=== PATIENT | female | born 1955 | race Caucasian/White ===

== ENCOUNTER 2020-01-05 19:49 | Emergency (ER) | payer OTHER, SELFPAY ==
[2020-01-05 19:50] VITALS: BP 108/68; PULSE 90; RESP 16; TEMP 37.3; O2SAT 98; BMI 25.7
--- NOTE | 2020-01-05 20:28 | ED.VIS.GEN ---
History of Present Illness Chief Complaint: Cellulitis Informant: Patient Onset: Yesterday Narrative: Patient presents the emergency department with a chief complaint of cellulitis of the right leg. Patient states that last night she developed a fever and she has been treating it with Advil. She did not know where the fever is coming from until this afternoon when she went to take a bath and noticed the redness on the right leg. In 2014 she had cellulitis of the right leg that was successfully treated outpatient veliz with Keflex. She states that this is in the same spot. She notes it is traveled slightly up onto her thigh. She denies any breaks in the skin. She states that she typically has had more problems with her right leg than the left in terms of varicose veins and some mild swelling. She typically wears compression stockings. She is on Coumadin a PFO with TIA. Past Medical History - Allergies and Home Meds Allergies/Adverse Reactions: Allergies No Known Allergies Allergy (Verified 01/05/20 19:53) Primary Care Physician: Arsenio Lynch III, MD [Primary Care Provider] - Smoking Status: Never smoker Review of Systems General: Reports: Fever. Denies: Chills, Sweats Eyes: Denies: Visual changes - bilaterally, Diplopia ENT: Denies: Rhinorrhea, Sore throat Cardiovascular: Denies: Chest pain, Palpitations Respiratory: Denies: Dyspnea, Cough, Dyspnea on exertion Gastrointestinal: Denies: Abdominal pain, Nausea, Vomiting, Diarrhea, Melena, Hematochezia Genitourinary: Denies: Dysuria, Hematuria, Frequency Musculoskeletal: Reports: Swelling. Denies: Back pain Skin: Reports: Rash. Denies: Wounds Neurological: Denies: Headache, Weakness, Numbness Physical Exam Vital Signs/Narrative: Vital Signs Temp Pulse Resp BP Pulse Ox 01/05/20 19:50 99.1 F 90 16 108/68 98 Inital Vital Signs reviewed: Yes General: Well nourished, Well developed, No Acute Distress Head: Normocephalic, Atraumatic Eyes: Perrl, EOMI ENT: Moist mucous membranes, No rhinorrhea Neck: Supple, Nontender Cardiovascular: Regular rate, Regular rhythm, No murmurs Respiratory: No distress, CTA bilaterally, Chest nontender Abdomen: Soft, Nontender, Nondistended, Normal bowel sounds Back: Nontender, Normal Inspection Extremities: Nontender, No edema Skin: Normal color, Rash - There is erythema circumferentially around the middle third of the distal right leg. It extends medially up onto the distal fourth of the thigh. Above which there is no lymphangitic streaking. No significant swelling from side to side. Neurological: Alert, Oriented x3, Cranial nerves II-XII grossly intact, Normal Strength, Normal Sensation Psychological: Normal affect, Normal Mood Diagnostic/Tx/Re-eval - Medical Decision Making White count is 18,000. Lactic acid is normal. Blood cultures were obtained and she received Keflex. Patient would really like to try Keflex as an outpatient. She more than adequately qualifies for admission but I understand her reasoning of not want to be admitted with the current pandemic. Patient will be sent home on Keflex which is worked for her in the past. Return if worsening or concerns. ED Disposition - Plan for ED Patient: Disposition: Home or Assisted Living Instructions: Cellulitis Prescriptions: Cephalexin [Keflex] 500 mg PO Q6 #40 cap Prescription Printed Referrals: Arsenio Lynch III, MD [Primary Care Provider] - 3-5 Days (for recheck) Additional Instructions: As discussed, you more than qualify for admission. If you are worsening please come back to the emergency department so we can admit you for IV antibiotics. However I understand why you would not want to be hospitalized and I think it is very reasonable to try oral antibiotics to help limit your risk of hospitalization.
[2020-01-05 20:53] LABS: Absolute Lymphocyte Count 1.17 X10^3/uL (0.83-4.51); Absolute Neutrophil Count 16.2 X10^3/uL (2.0-7.7); Basophil# 0.03 X10^3/uL; Basophil% 0.2 % (0-1); Eosinophil# 0.07 X10^3/uL; Eosinophils% 0.4 % (0-5); Hematocrit 37.7 % (37-47); Hemoglobin 12.6 g/dL (12.0-15.0); Lymphocyte # 1.17 X10^3/ul (4.0); Lymphocyte % 6.4 % (19-41); Mean Corp Hgb Conc 33.4 g/dL (32-36); Mean Corpuscular Hgb 28.6 pg (27.0-32.0); Mean Corpuscular Volume 85.5 fL (81-99); Mean Platelet Vol. 10.7 fl (6.2-12.0); Monocyte# 0.81 X10^3/uL; Monocyte% 4.4 % (0-10); NRBC Flagged by Analyzer 0 % (0-5); Neutrophil # 16.21 X10^3/uL (2.7-7.7); Neutrophil % 87.9 % (47-70); Platelet Count 193 K/mm3 (150-450); RBC Distribution Width CV 12.8 % (11.6-14.6); RBC Distribution Width SD 39.1 fl (35.1-43.9); Red Blood Count 4.41 M/mm3 (4.2-5.4); White Blood Count 18.4 K/mm3 (4.4-11.0)
[2020-01-05 21:03] LABS: Prothrombin Time (Protime)PT. 30.8 SECONDS (11.7-14.9)
[2020-01-05 21:08] LABS: ALB/GLOB Ratio 0.9 RATIO (0.9-2.4); AST(SGOT) 19 U/L (15-37); Alanine Aminotransfer ALT/SGPT 34 U/L (13-56); Albumin, Serum 3.2 g/dL (3.2-5.0); Alkaline Phosphatase 55 U/L (45-117); Anion Gap 8 (5-15); BUN 23 mg/dL (7-18); BUN/Creat Ratio 20.4 RATIO (10-20); Calcium,Total 9.8 mg/dL (8.5-10.1); Chloride 104 mmol/L (98-107); Creatinine, Serum 1.13 mg/dL (0.55-1.02); EST Glomerular Filtration Rate 52 mL/min (>60); Est Glom Filt Rate - Afr Amer 63 mL/min (>60); Estimated Creatinine Clearance 53.95 ml/min; Globulin 3.4 g/dL (2.2-4.2); Glucose 126 mg/dL (74-106); Potassium 3.3 mmol/L (3.5-5.1); Protein, Total 6.6 g/dL (6.4-8.2); Sodium Level 139 mmol/L (136-145)
[2020-01-05 21:20] LABS: Lactic Acid 1.2 mmol/L (0.4-1.9)
[2020-01-05] MEDS: Cephalexin 250 MG Capsule 500 MG PO (21:42)
[2020-01-05 22:26] VITALS: TEMP 37.2
== END 2020-01-05 22:27 | disposition home or self-care (01) ==
PROVIDERS: Emergency Provider Emergency Medicine; PCP Family Medicine
DX: L03.115 Cellulitis of right lower limb (principal); Q21.1 Atrial septal defect; Z79.01 Long term (current) use of anticoagulants; Z79.899 Other long term (current) drug therapy
CPT/HCPCS: 80053; 83605; 85025; 85610; 87040; 99284; A4216

== ENCOUNTER 2024-10-18 07:53 | Day surgery (SDC) | payer SELFPAY, OTHER ==
[2024-10-18 08:05] LABS: INR Fingerstick 1.3; Prothrombin Time Fingerstick 15.1 SEC (11.7-14.9)
--- NOTE | 2024-10-18 08:06 | HP.PCM_ITS ---
HPI - General General Date of Admission: 10/18/24 Date of Service: 10/18/24 Chief Complaint: abdominal pain, bloating and change in bowel habits HPI Narrative DONAL MARTIN, is a 68 F who [id number] female presents for endoscopic evaluation of intermittent RUQ pain, ribbon like stools, gas pain, bloating and intermittent nausea. CBC and CMP were unremarkable 07/25/2024. INR 2.2 on coumadin. 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 - pills - oropharyngeal - never had evaluated previously - never seen ST - over the past year her bowel habits have changed - stools can be narrow and ribbon like - can have a BM QD-Q2D - occasional diarrhea - denies any bleeding - Sister with colon CA mid 50's - H/O TIA 2004 - takes Coumadin - denies any CP or SOB - denies any kidney disease COUNT INCLUDES [facility] Medical History Wears glasses Wears dentures Post-menopausal History of DVT of lower extremity Gastric reflux Non-smoker History of edema History of toxemia of PFO (patent foramen ovale) HTN (hypertension) Varicose veins of both legs with edema TIA (transient ischemic attack) Home Medications ?Medication ?Instructions ?Recorded ?Last Taken ?Type Artic Sea 3 cap PO DAILY 08/14/24 Unkn own History ascorbic acid (vitamin C) 1,000 mg 1 g PO QDAY 4 Unknown History capsule cranberry extract 500 mg capsule 500 mg PO DAILY 08/14 Unknown History (Cranberry Concentrate) hydrochlorothiazide 12.5 mg tablet 12.5 mg PO QDAY 11/06 Unknown History losartan 25 mg tablet 25 mg PO QDAY 08/14/24 Unkno wn History red yeast rice 600 mg capsule 1,200 mg PO QDAY 4 Unknown History thyro t 1 tab PO DAILY 08/14/24 Unkn own History warfarin 5 mg tablet 5 mg PO .QMTHSA 08/14/24 Unk nown History warfarin 6 mg tablet 6 mg PO .QSUTWF 08/14/24 Unk nown History pantoprazole 40 mg tablet,delayed 40 mg PO QDAY #30 ta bs 10/16/24 Unknown Rx release Allergy/AdvReac Type Severity Reaction Status Date / Time No Known Allergies Allergy Verified 10/16/24 13:15 Family History Sister Colon cancer Surgical History History of tooth extraction Hx of cholecystectomy Hx of tubal ligation H/O vein stripping H/O: section Social History Smoking Status: Never smoker ROS Constitutional Constitutional: Denies fatigue, fever(s), poor appetite, weight gain or weight loss Gastrointestinal Gastrointestinal: Denies belching, bloating, change in bowel habits, change in stool character, chewing difficulty, coffee ground emesis, constipation, cramping, diarrhea, dyspepsia, dysphagia, early satiety, excessive flatus, fecal incontinence, heartburn, hematemesis, hematochezia, hemorrhoids, loose stools, melena, nausea, odynophagia, rectal bleeding, tenesmus, vomiting or weight changes Physical Exam Const alert, oriented x3, no apparent distress and healthy appearing General Appearance: cooperative GI normal to inspection, nondistended, normoactive bowel sounds, soft to palpation, non-tender and non-distended Percussion: normal to percussion Rectal Exam: deferred Results Lab / Micro Data Labs: Laboratory Results - last 24 hr 10/18/24 08:02: POC PT 15.1 H, INR 1.3 Assessment & Plan Assessment/Plan (1) Family history of colon cancer: (2) Dysphagia: QUALIFIERS: Dysphagia type: oropharyngeal phase Qualified Code(s): R13.12 - Dysphagia, oropharyngeal phase (3) Change in bowel habits: (4) Nausea: (5) RUQ pain: PLAN: Assessment and Plan Assessment and Plan (1) RUQ pain: Status: Acute (2) Nausea: Status: Acute (3) Change in bowel habits: Status: Acute (4) Dysphagia: Status: Acute Qualifiers: Dysphagia type: oropharyngeal phase Qualified Code(s): R13.12 - Dysphagia, oropharyngeal phase (5) Family history of colon cancer: Status: Acute Medications: Discontinued cephalexin Discontinued Reason: Pt no longer taking 500 mg PO Q6 40 caps 0RF Plan 68y/o female presents for initial consultation with complaints of intermittent RUQ pain, ribbon like stools, gas pain, bloating and intermittent nausea. CBC and CMP were unremarkable 07/25/2024. INR 2.2 on coumadin. She reports bowel habits changed a year ago without any new medications or dietary changes. She denies any bleeding. Family history is significant for sister with colon cancer in her mid 50's. RUQ pain x2 months with intermittent nausea and frequent HB. She denies any emesis, but reports a weight loss of a few pounds. She also complains of dysphagia with pills since TIA in 2004. She denies any prior MBS or ST. I have ordered MBS and scheduled her for bidirectional endoscopies. She will start PPI daily and follow-up in the office post scopes. Colon & EGD Obtain clearance to hold Coumadin MBS Start PPI daily - with plan to taper off after 8-12 weeks pending symptoms and EGD findings Plan Details Follow Up: 8 Weeks
--- NOTE | 2024-10-18 08:20 | PCM.PRE.AN2 ---
ASA Classification* ASA Classification ASA Classification: 2 Assessment & Plan Anesthesia* Anesthesia Assessment Anesthesia Assessment: Discussed sedation and/or anesthesia options, risks, benefits, and alternatives with patient/parents/legal guardian/POA. Questions invited. The patient/parents/legal guardian/POA seems to understand and agrees to proceed with anesthesia plan. Reviewed the physical assessment, medical history, allergy history and patient home medications list prior to surgery/procedure/anesthetic and documented any changes. Performed airway and anesthesia risk assessments. Anesthesia Type Anesthesia Type: MAC Anesthesia Focused Assessment* Airway Assessment Mouth opens: >3 cm Mallampati Score: II Focused Labs Anesthesia Preop lab: CBC WBC 18.4 K/mm3 (4.4-11.0) H 01/05/20 20:01/05/20 RBC 4.41 M/mm3 (4.2-5.4) 01/05/20 20:39 01/05/20 Hgb 12.6 g/dL (12.0-15.0) 01/05/20 20:01/05/20 Hct 37.7 % (37-47) 01/05/20 20:39 01/05/20 Plt Count 193 K/mm3 (150-450) 01/05/20 20:39 01/05/20 CHEMISTRY Potassium 3.3 mmol/L (3.5-5.1) L 01/05/20 20:39 01/05/20 Sodium 139 mmol/L (136-145) 01/05/20 20:39 01/05/20 BUN 23 mg/dL (7-18) H 01/05/20 20:01/05/20 Creatinine 1.13 mg/dL (0.55-1.02) H 01/05/20 20:39 01/05/20 Glucose 126 mg/dL (74-106) H 01/05/20 20:39 01/05/20 COAG PT 30.8 SECONDS (11.7-14.9) H 01/05/20 20:39 01/05/20 Pre-Assessment Diagnosis/Proposed Procedure Planned Operative Procedure(s): EGD, COLONOSCOPY Anesthesia History 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 When Was Last Pacemaker Check QUESTION #4 FULL TEXT: You/Your Family Experience fever (hyperthermia) with Anesthesia Last Oral Intake Last Oral intake: Last Oral Intake NPO since Meds taken in AM with sips of water? Meds patient instructed to take am of surgery PONV PONV - sprinkler fitter apprentice: PONV - sprinkler fitter apprentice Female Yes 10/16/24 13:25 HX of Motion Sickness No 10/16/24 13:25 HX of N/V After Surgery No 10/16/24 13:25 Non-Smoker Yes 10/16/24 13:25 Duration of Surgery greater No 10/16/24 13:25 than 60 minutes Number of Risk Factors 2 10/16/24 13:25 PONV Score Moderate Risk 10/16/24 13:25 Respiratory Assessment Respiratory Assessment - sprinkler fitter apprentice: Respiratory Tract Infection Hx - sprinkler fitter apprentice Hx Respiratory Tract Infection No 10/16/24 13:25 STOP Sleep Apnea STOP Sleep Apnea - sprinkler fitter apprentice: STOP Sleep Apnea - sprinkler fitter apprentice Hx Hypertension Yes: CONTROLLED ON MEDS 10/16/24 13:25 Hx Sleep Apnea No 10/16/24 13:25 CPAP BIPAP Do you snore loudly (louder No 10/16/24 13:25 than talking or can be heard Do you often feel tired/ No 10/16/24 13:25 fatigued/ sleepy during daytime? Has anyone observed you stop No 10/16/24 13:25 breathing during sleep? STOP Results Negative 10/16/24 13:25 QUESTION #5 FULL TEXT : Do you snore loudly (louder than talking or can be heard through closed doors)? Tobacco Use History Tobacco Use History - sprinkler fitter apprentice: Tobacco Use History - sprinkler fitter apprentice Tobacco Use Smoking Status Never smoker 10/16/24 13:25 Hx Tobacco Use No 10/16/24 13:25 Years Smoking Packs Smoked per Day Smoking Cessation Date was within the last 15 years Hx Smoking Cessation Date Hx Smoking Cessation Counseling Hematologic Medial History Hematologic Hx - sprinkler fitter apprentice: Hematologic Medical Hx - account auditor Hx of Blood Transfusion No 10/16/24 13:25 Hx of Transfusion in last 3 No 10/16/24 13:25 Months Date of Last Transfusion (if within last 3 months) Ever experience any problems No 10/16/24 13:25 with transfusion(s)? Specify any problems Hx of Preganancy in last 3 No 10/16/24 13:25 Months Nurse Filling Out Transfusion MGRIFFITH 10/16/24 13:25 & Questions: Date: 10/16/24 10/16/24 13:25 Time: 13:27 10/16/24 13:25 Patient unable to answer at this time (ie. confused, unrespo /Reproduction History /Reproductive History - sprinkler fitter apprentice: /Reproductive Hx- sprinkler fitter apprentice Hx Now No 10/16/24 13:25 Gestational Age (in weeks): EDC: Hx Hx Para Hx Section SAB No 10/16/24 13:25 PFSH Medical History Wears glasses Wears dentures Post-menopausal History of DVT of lower extremity Gastric reflux Non-smoker History of edema History of toxemia of PFO (patent foramen ovale) HTN (hypertension) Varicose veins of both legs with edema TIA (transient ischemic attack) Home Medications ?Medication ?Instructions ?Recorded ?Last Taken ?Type Artic Sea 3 cap PO DAILY 08/14/24 Unknown History ascorbic acid (vitamin C) 1,000 mg 1 g PO QDAY 08/14/24 Unknown History capsule cranberry extract 500 mg capsule 500 mg PO DAILY 08/14/24 Unknown History (Cranberry Concentrate) hydrochlorothiazide 12.5 mg tablet 12.5 mg PO QDAY 08/14/24 Unknown History losartan 25 mg tablet 25 mg PO QDAY 08/14/24 Unknown History red yeast rice 600 mg capsule 1,200 mg PO QDAY 08/14/24 Unknown History thyro t 1 tab PO DAILY 08/14/24 Unknown History warfarin 5 mg tablet 5 mg PO .QMTHSA 08/14/24 Unknown History warfarin 6 mg tablet 6 mg PO .QSUTWF 08/14/24 Unknown History pantoprazole 40 mg tablet,delayed 40 mg PO QDAY #30 tabs 10/16/24 Unknown Rx release Allergy/AdvReac Type Severity Reaction Status Date / Time No Known Allergies Allergy Verified 10/16/24 13:15 Family History Sister Colon cancer Surgical History History of tooth extraction Hx of cholecystectomy Hx of tubal ligation H/O vein stripping H/O: section Social History Smoking Status: Never smoker Review of Systems (Anesthesia) ROS Narrative System reviewed and no additional complaints, except as documented.
[2024-10-18 08:26] VITALS: BP 144/78; PULSE 95; RESP 16; TEMP 37; O2SAT 99; BMI 25.4
--- NOTE | 2024-10-18 09:00 | COLBX_PTH ---
PATIENT: DONAL MARTIN LOC: EN U#:[id number] AGE/SX: 68/F ROOM: RE10/18/[address]: Dr. Calvin Haider DO : 1955 BED: DIS: 10/18/2024 SPEC #: [id number] RECD: 10/18/24 12:30 STATUS: DONNY JACQUIE #: [id number] JOAN: 10/18/24 09:[address]: Calvin Haider DEPT: SURGICAL PATHOLOGY RECD BY: Omar Owen ENTERED: 10/18/24 13:25 SP TYPE: COLON BX OTHR DR: Sarah Cantu, WEB SYSTEMS DEVELOPER-C Tissues: A - Duodenum, NOS B - Gastric mucous membrane C - Esophagus, NOS D - Rectum, NOS E - Ileum, NOS F - COLON BIOPSY Procedures: Special Stain Group I Surgery Specimen Level IV Alcian Blue/PAS (control) HEADER OPERATION: Colonoscopy with biopsy, EGD with biopsy PRE-OP DIAGNOSIS: Family history of colon cancer, dysphagia, change in bowel habits, nausea, right upper quadrant pain TISSUE SUBMITTED: A- Duodenum biopsy, B- Gastric body biopsy, C- Distal esophagus biopsy,D- Rectal polyp biopsy, E- Terminal ileum biopsy, F- Random biopsy MICROSCOPIC DIAGNOSIS A. Duodenum, biopsy: Fragments of duodenal mucosa with mild congestion and hemorrhage. B. Gastric body, biopsy: Moderate chronic active gastritis. See comment. C. Distal esophagus, biopsy: Fragments of gastric mucosa with moderate chronic inflammation and mild acute inflammation. Intestinal metaplasia (goblet cell metaplasia) not identified. See comment. D. Rectal polyp, biopsy: Fragments of tubular adenoma. E. Terminal ileum, biopsy: Fragments of small intestinal mucosa, no pathologic diagnosis. See comment. F. Colon, random biopsy: Fragments of colonic mucosa, no pathologic diagnosis. 10/19/2024 COMMENT B. The results of immunohistochemistry for Helicobacter pylori will be reported separately ([id number]). C. Alcian blue/PAS stain with matched control is used in the evaluation of the specimen. E. Prominent lymphoid aggregates are noted. MICROSCOPIC DESCRIPTION Slides are reviewed. GROSS DESCRIPTION A. Received in fixative is one container labeled with the patient's name and designated Duodenum biopsy. The specimen consists of two irregular fragments of light deng soft tissue that in aggregate measure 0.7 x 0.3 x 0.2 cm. The specimen is totally submitted in one cassette. B. Received in fixative is one container labeled with the patient's name and designated Gastric body biopsy. The specimen consists of one irregular fragment of light deng soft tissue that measures 0.5 x 0.3 x 0.2 cm. The specimen is totally submitted in one cassette. C. Received in fixative is one container labeled with the patient's name and designated Distal esophagus biopsy. The specimen consists of two irregular fragments of light deng soft tissue that in aggregate measure 1 x 0.3 x 0.2 cm. The specimen is totally submitted in one cassette. D. Received in fixative is one container labeled with the patient's name and designated Rectal polyp biopsy. The specimen consists of multiple irregular fragments of light deng soft tissue that in aggregate measure 0.8 x 0.2 x 0.2 cm. The specimen is totally submitted in one cassette. E. Received in fixative is one container labeled with the patient's name and designated Terminal ileum biopsy. The specimen consists of two irregular fragments of light deng soft tissue that in aggregate measure 0.8 x 0.2 x 0.1 cm. The specimen is totally submitted in one cassette. F. Received in fixative is one container labeled with the patient's name and designated Random biopsy. The specimen consists of multiple irregular fragments of light deng soft tissue that in aggregate measure 2.1 x 0.2 x 0.2 cm. The specimen is totally submitted in one cassette. FOREIGN 10/18/2024 TC:2 CPT:43043o9,57617
--- NOTE | 2024-10-18 09:00 | IMM_PTH ---
PATIENT: DONAL MARTIN LOC: EN U#:[id number] AGE/SX: 68/F ROOM: RE10/18/[address]: Dr. Calvin Haider DO : 1955 BED: DIS: 10/18/2024 SPEC #: [id number] RECD: 10/18/24 14:38 STATUS: DONNY REKell #: [id number] JOAN: 10/18/24 09:[address]: Calvin Haider DEPT: IMMUNOHISTOCHEMISTRY RECD BY: Mason Farah ENTERED: 10/18/24 14:38 SP TYPE: IMMUNO OTHR DR: Sarah Cantu, ONLINE CONTENT COORDINATOR-C Tissues: B - Gastric mucous membrane Procedures: H Pylori (initial) PHYSICIAN & INSTITUTION [place] [id number] SPECIMEN INFORMATION: Tissue Source: B- Gastric body biopsy Clinical Info: Family history of colon cancer, dysphagia, change in bowel habits, nausea, right upper quadrant pain Specimen Number: [id number] CPT code: 86331 METHODOLOGY: Deparaffinized sections of prefer/formalin-fixed tissue or PAP/DQ stained slides are incubated with monoclonal/polyclonal antibodies/oligonucleotide probes. Localization is made via biotin free immunoperoxidase method. Appropriate controls are performed and reacted as expected. Results on target cell population are indicated in the following table: RESULTS: ANTIBODY / CLONE RESULT Block B H Pylori (polyclonal) positive These tests were developed and their performance characteristics determined by [facility]. They may not have been cleared or approved by the U.S. Food and Drug Administration. The FDA has determined that such clearance or approval is not necessary. The above immunohistochemical/dualISH markers are ordered and reviewed by the Pathologist. INTERPRETATION: B. Gastric body, biopsy: Positive for numerous Helicobacter pylori organisms. 10/19/2024
--- NOTE | 2024-10-18 09:19 | OP.CCLET_ITS ---
10/18/2024 Sarah Cantu Cd Technician, Cd Technician-c Re : Upper GI endoscopy procedure for Cher Pham Dear Pepe This procedure was performed on Friday, October 18, 2024. My impressions and recommendations are as follows: Impressions : - LA Grade A reflux esophagitis with no bleeding. Biopsied. - Small hiatal hernia. - Chronic gastritis. Secondary to severe bile acid reflux into the stomach and into the esophagus. Biopsied. - Erythematous duodenopathy. Recommendations : - Discharge patient to home. - Resume previous diet. - Continue present medications. - Await pathology results. - Consider gastric emptying study My findings are described in the full procedure note, which is enclosed. If I can be of further assistance, please feel free to contact me at . Sincerely, Calvin Haider, 10/18/2024 9:18:20 AM This report has been signed electronically.
--- NOTE | 2024-10-18 09:19 | OP.EGD_ITS ---
Patient Name: Cher Pham Procedure Date: 10/18/2024 8:44 AM Date of : 1955 Age: 68 Procedure: Upper GI endoscopy Indications: Epigastric abdominal pain, Suspected esophageal reflux Providers: Calvin Haider DO Referring MD: Sarah Cantu Business Process Representative, Business Process Representative-c Medicines: Monitored Anesthesia Care Patient Profile: This is a 68 year old female. Refer to note in patient chart for documentation of history and physical. Patient has symptoms of chronic epigastric abdominal pain, chronic dyspepsia and chronic nausea. Complications: No immediate complications. Procedure: Pre-Anesthesia Assessment: - Prior to the procedure, a History and Physical was performed, and patient medications and allergies were reviewed. The patient is competent. The risks and benefits of the procedure and the sedation options and risks were discussed with the patient. All questions were answered and informed consent was obtained. Patient identification and proposed procedure were verified by the physician in the pre-procedure area. Mental Status Examination: alert and oriented. Airway Examination: normal oropharyngeal airway and neck mobility. Respiratory Examination: clear to auscultation. CV Examination: normal. Prophylactic Antibiotics: The patient does not require prophylactic antibiotics. Prior Anticoagulants: The patient has taken no anticoagulant or antiplatelet agents. ASA Grade Assessment: II - A patient with mild systemic disease. After reviewing the risks and benefits, the patient was deemed in satisfactory condition to undergo the procedure. The anesthesia plan was to use monitored anesthesia care (MAC). Immediately prior to administration of medications, the patient was re-assessed for adequacy to receive sedatives. The heart rate, respiratory rate, oxygen saturations, blood pressure, adequacy of pulmonary ventilation, and response to care were monitored throughout the procedure. The physical status of the patient was re-assessed after the procedure. After obtaining informed consent, the endoscope was passed under direct vision. Throughout the procedure, the patient's blood pressure, pulse, and oxygen saturations were monitored continuously. The pediatric colonoscope was introduced through the mouth, and advanced to the second part of duodenum. The upper GI endoscopy was accomplished without difficulty. The patient tolerated the procedure well. Scope In: 8:54:15 AM Scope Out: 8:58:46 AM Total Procedure Duration Time 0 hours 4 minutes 31 seconds Findings: LA Grade A (one or more mucosal breaks less than 5 mm, not extending between tops of 2 mucosal folds) esophagitis with no bleeding was found 38 to 40 cm from the incisors. Biopsies were taken with a cold forceps for histology. Verification of patient identification for the specimen was done. Estimated blood loss was minimal. A small hiatal hernia was present. Patchy mild inflammation characterized by erythema was found in the gastric body. Biopsies were taken with a cold forceps for histology. Verification of patient identification for the specimen was done. Biopsies were taken with a cold forceps for Helicobacter pylori testing. Verification of patient identification for the specimen was done. Estimated blood loss was minimal. Localized mildly erythematous mucosa without active bleeding and with no stigmata of bleeding was found in the duodenal bulb and in the first portion of the duodenum. Impression: - LA Grade A reflux esophagitis with no bleeding. Biopsied. - Small hiatal hernia. - Chronic gastritis. Secondary to severe bile acid reflux into the stomach and into the esophagus. Biopsied. - Erythematous duodenopathy. Recommendation: - Discharge patient to home. - Resume previous diet. - Continue present medications. - Await pathology results. - Consider gastric emptying study Procedure Code(s): --- Professional --- 90419, Esophagogastroduodenoscopy, flexible, transoral; with biopsy, single or multiple CPT copyright 2021 [employer]. All rights reserved. The codes documented in this report are preliminary and upon cleaning laborer review may be revised to meet current compliance requirements. Calvin Haider DO 10/18/2024 9:18:20 AM This report has been signed electronically. Number of Addenda: 0 Note Initiated On: 10/18/2024 8:44 AM
[2024-10-18 09:20] VITALS: BP 106/71; BP 144/78; PULSE 77; RESP 16; TEMP 36.3; O2SAT 77
--- NOTE | 2024-10-18 09:24 | PCM.POST.ANE ---
Anesthesia: Postop Eval I Current Vital Signs Temperature: 97.4 F Pulse Rate: 73 Blood Pressure: 106/71 Respiratory Rate: 16 Pulse Ox: 96 Oxygen Delivery Method: Room Air Assessment Airway patent: Yes Spontaneous unlabored respirations: Yes Mental status: Awake and Calm nausea: No Vomiting: No Anesthesia Complication: No Fluid Hydration Crystalloid volume administer (ml): 10 Total IV fluid infused: 10 Progress Note Anesthesia document: Postop Eval 1 completed: Yes
[2024-10-18 09:25] VITALS: BP 106/71; BP 114/73; BP 144/78; PULSE 73; PULSE 75; RESP 16; TEMP 36.3; O2SAT 89; O2SAT 96
[2024-10-18 09:30] VITALS: BP 125/76; BP 144/78; PULSE 70; RESP 14; O2SAT 97
--- NOTE | 2024-10-18 09:31 | OP.CCLET_ITS ---
10/18/2024 Sarah Cantu Rugby League Footballer, Rugby League Footballer-c Re : Colonoscopy procedure for Cher Pham Dear [place] This procedure was performed on Friday, October 18, 2024. My impressions and recommendations are as follows: Impressions : - Diverticulosis in the recto-sigmoid colon and in the sigmoid colon. - One 5 mm polyp in the rectum, removed with a jumbo cold forceps. Resected and retrieved. - Stool in the recto-sigmoid colon, in the sigmoid colon, at the splenic flexure, in the transverse colon and in the cecum. - Congested mucosa in the sigmoid colon, in the descending colon and in the ascending colon. Biopsied. - The examined portion of the ileum was normal. Biopsied. Recommendations : - Discharge patient to home. - Resume previous diet. - Continue present medications. - Await pathology results. - Repeat colonoscopy in 5 years for surveillance. My findings are described in the full procedure note, which is enclosed. If I can be of further assistance, please feel free to contact me at . Sincerely, Calvin Haider, 10/18/2024 9:31:08 AM This report has been signed electronically.
--- NOTE | 2024-10-18 09:31 | OP.COLON_ITS ---
Patient Name: Cher Pham Procedure Date: 10/18/2024 8:58 AM Date of : 1955 Age: 68 Procedure: Colonoscopy Indications: Generalized abdominal pain Providers: Calvin Haider DO Referring MD: Sarah Cantu Director Of Convention Services, Director Of Convention Services-c Medicines: Monitored Anesthesia Care Patient Profile: This is a 68 year old female. Refer to note in patient chart for documentation of history and physical. Patient has symptoms of chronic epigastric abdominal pain, chronic dyspepsia and chronic nausea. Last Colonoscopy: none. The patient's first colonoscopy is today. Complications: No immediate complications. Procedure: Pre-Anesthesia Assessment: - Prior to the procedure, a History and Physical was performed, and patient medications and allergies were reviewed. The patient is competent. The risks and benefits of the procedure and the sedation options and risks were discussed with the patient. All questions were answered and informed consent was obtained. Patient identification and proposed procedure were verified by the physician in the pre-procedure area. Mental Status Examination: alert and oriented. Airway Examination: normal oropharyngeal airway and neck mobility. Respiratory Examination: clear to auscultation. CV Examination: normal. Prophylactic Antibiotics: The patient does not require prophylactic antibiotics. Prior Anticoagulants: The patient has taken no anticoagulant or antiplatelet agents. ASA Grade Assessment: II - A patient with mild systemic disease. After reviewing the risks and benefits, the patient was deemed in satisfactory condition to undergo the procedure. The anesthesia plan was to use monitored anesthesia care (MAC). Immediately prior to administration of medications, the patient was re-assessed for adequacy to receive sedatives. The heart rate, respiratory rate, oxygen saturations, blood pressure, adequacy of pulmonary ventilation, and response to care were monitored throughout the procedure. The physical status of the patient was re-assessed after the procedure. After I obtained informed consent, the scope was passed under direct vision. Throughout the procedure, the patient's blood pressure, pulse, and oxygen saturations were monitored continuously. The pediatric colonoscope was introduced through the anus and advanced to the terminal ileum. The colonoscopy was performed without difficulty. The patient tolerated the procedure well. The quality of the bowel preparation was adequate. The terminal ileum, ileocecal valve, appendiceal orifice, and rectum were photographed. Scope In: 9:00:40 AM Scope Withdrawal Time 0 hours 6 minutes 44 seconds Scope Out: 9:11:51 AM Total Procedure Duration Time 0 hours 11 minutes 11 seconds Findings: The perianal and digital rectal examinations were normal. A few small-mouthed diverticula were found in the recto-sigmoid colon and sigmoid colon. A 5 mm polyp was found in the rectum. The polyp was sessile. The polyp was removed with a jumbo cold forceps. Resection and retrieval were complete. Verification of patient identification for the specimen was done. Estimated blood loss was minimal. Stool was found in the recto-sigmoid colon, in the sigmoid colon, at the splenic flexure, in the transverse colon and in the cecum. An area of mildly congested mucosa was found in the sigmoid colon, in the descending colon and in the ascending colon. Biopsies were taken with a cold forceps for histology. Verification of patient identification for the specimen was done. Estimated blood loss was minimal. The terminal ileum appeared normal. Biopsies were taken with a cold forceps for histology. Verification of patient identification for the specimen was done. Estimated blood loss was minimal. Impression: - Diverticulosis in the recto-sigmoid colon and in the sigmoid colon. - One 5 mm polyp in the rectum, removed with a jumbo cold forceps. Resected and retrieved. - Stool in the recto-sigmoid colon, in the sigmoid colon, at the splenic flexure, in the transverse colon and in the cecum. - Congested mucosa in the sigmoid colon, in the descending colon and in the ascending colon. Biopsied. - The examined portion of the ileum was normal. Biopsied. Recommendation: - Discharge patient to home. - Resume previous diet. - Continue present medications. - Await pathology results. - Repeat colonoscopy in 5 years for surveillance. Procedure Code(s): --- Professional --- 97872, Colonoscopy, flexible; with biopsy, single or multiple CPT copyright 2021 [employer]. All rights reserved. The codes documented in this report are preliminary and upon pony ride attendant review may be revised to meet current compliance requirements. Calvin Haider DO 10/18/2024 9:31:08 AM This report has been signed electronically. Number of Addenda: 0 Note Initiated On: 10/18/2024 8:58 AM
[2024-10-18 09:35] VITALS: BP 134/75; BP 144/78; PULSE 72; RESP 16; TEMP 35.9; O2SAT 96
[2024-10-18 09:51] VITALS: BP 144/78
--- NOTE | 2024-10-18 10:08 | POSTOPAN2_ITS ---
Anesthesia Postop Eval I Sum Postop Eval Completion status Anesthesia document: Postop Eval 1 completed: Yes Anesthesia Postop Eval I Summary Anesthesia Postop Eval I Summary: Anesthesia Postop Eval I: Assessment Summary Airway patent Yes 10/18/24 09:25 STAVE MACHINE [email or web address].[email or web address] Spontaneous unlabored Yes 10/18/24 09:25 STAVE MACHINE TENDER.[email or web address] respirations Mental status Awake,Calm 10/18/24 09:25 STAVE MACHINE [email or web address].[email or web address] nausea No 10/18/24 09:25 STAVE MACHINE TENDER.GDOTT Vomiting No 10/18/24 09:25 STAVE MACHINE TENDER.GDOTT Anesthesia Postop Eval I: Fluid Summary Crystalloid volume administer 10 10/18/24 09:25 STAVE MACHINE TENDER.GDOTT (ml) Colloids volume administered ( ml) Blood Product volume administered (ml) Total IV fluid infused 10 10/18/24 09:25 STAVE MACHINE TENDER.GDOTT Anesthesia Postop Eval I: Summary Notes Anesthesia Complication No 10/18/24 09:25 STAVE MACHINE TENDER.GDOTT Anesthesia Complication Comment: Post-operative progress note Anesthesia: Postop Eval II Evaluation Mental status: Awake Pain Level: 0 nausea: No Vomiting: No
--- NOTE | 2024-10-18 10:08 | PCM.POSTANE2 ---
Anesthesia Postop Eval I Sum Postop Eval Completion status Anesthesia document: Postop Eval 1 completed: Yes Anesthesia Postop Eval I Summary Anesthesia Postop Eval I Summary: Anesthesia Postop Eval I: Assessment Summary Airway patent Yes 10/18/24 09:25 GENERAL EDUCATION PROFESSOR.[email or web address] Spontaneous unlabored Yes 10/18/24 09:25 GENERAL EDUCATION PROFESSOR.GDOTT respirations Mental status Awake,Calm 10/18/24 09:25 GENERAL EDUCATION PROFESSOR.GDOTT nausea No 10/18/24 09:25 GENERAL EDUCATION PROFESSOR.GDOTT Vomiting No 10/18/24 09:25 GENERAL EDUCATION PROFESSOR.GDOTT Anesthesia Postop Eval I: Fluid Summary Crystalloid volume administer 10 10/18/24 09:25 GENERAL EDUCATION PROFESSOR.GDOTT (ml) Colloids volume administered ( ml) Blood Product volume administered (ml) Total IV fluid infused 10 10/18/24 09:25 GENERAL EDUCATION PROFESSOR.GDOTT Anesthesia Postop Eval I: Summary Notes Anesthesia Complication No 10/18/24 09:25 GENERAL EDUCATION PROFESSOR.GDOTT Anesthesia Complication Comment: Post-operative progress note Anesthesia: Postop Eval II Evaluation Mental status: Awake Pain Level: 0 nausea: No Vomiting: No
== END 2024-10-18 10:19 | disposition home or self-care (01) ==
LOC: EN 08:00 → AC 08:00
PROVIDERS: PCP Nurse Practitioner Family; Referring Provider Nurse Practitioner Family; Visit Provider Internal Medicine Gastroenterology
PROC: 0DJD8ZZ Inspection of Lower Intestinal Tract, Via Natural or Artificial Opening Endoscopic (ICD-10-PCS; CPT 45378; principal; 2024-10-18 08:55)
DX: R10.11 Right upper quadrant pain (principal); R13.12 Dysphagia, oropharyngeal phase; K44.9 Diaphragmatic hernia without obstruction or gangrene; K63.89 Other specified diseases of intestine; B96.81 Helicobacter pylori [H. pylori] as the cause of diseases classified elsewhere; I10 Essential (primary) hypertension; K62.1 Rectal polyp; K21.00 Gastro-esophageal reflux disease with esophagitis, without bleeding; K57.30 Diverticulosis of large intestine without perforation or abscess without bleeding; Z80.0 Family history of malignant neoplasm of digestive organs; K29.50 Unspecified chronic gastritis without bleeding; Z86.73 Personal history of transient ischemic attack (TIA), and cerebral infarction without residual deficits; Z79.899 Other long term (current) drug therapy; Z79.01 Long term (current) use of anticoagulants; Z90.49 Acquired absence of other specified parts of digestive tract; Z98.51 Tubal ligation status; R11.0 Nausea; R19.4 Change in bowel habit; K31.89 Other diseases of stomach and duodenum
CPT/HCPCS: 45380; 43239; 36416; 85610; 88305; 88312; 88342; A4216